=== PATIENT | male | born 1945 | race Caucasian/White ===

== ENCOUNTER → 2020-04-09 | Outpatient (CLI) | payer BC ==
[~2020-04-09] MED LIST: ACET-709 PO; ACET325T26 PO; ATEN25TA PO; ATEN50TA41 PO; CYAN1TAB29 PO; FENO160T PO; LISI1TAB20 PO; OMEP40CA42 PO; ONDA4TAB7 PO; REGADENOSON 0.4 MG/5 ML SYRINGE ONE; TADA5TAB2 PO
== END | disposition home or self-care (01) ==
LOC: CFH 07:32
PROVIDERS: ATTEND Internal Medicine Cardiovascular Disease
DX: I08.0 Rheumatic disorders of both mitral and aortic valves (principal); I10 Essential (primary) hypertension; R93.1 Abnormal findings on diagnostic imaging of heart and coronary circulation; E78.49 Other hyperlipidemia; I25.10 Atherosclerotic heart disease of native coronary artery without angina pectoris
CPT/HCPCS: 78452; 93017; 93306; A9502; J2785